=== PATIENT | male | born 1960 | race Caucasian/White ===

== ENCOUNTER → 2022-11-09 14:12 | Outpatient (CLI) | payer OTHER, SELFPAY ==
[2022-11-09 14:32] LABS: Microscopic, Urine URINE MICROSCOPIC (MICROSCOPIC)
[2022-11-09 15:40] LABS: Appearance,Urine CLEAR (Clear); Bilirubin,Urine Negative (Negative); Blood, Urine TRACE-I (Negative); Color,Urine YELLOW (Yellow); Glucose,Urine (UA) Negative (Negative); Ketones,Urine Negative (Negative); Leukocyte Esterase,Urine Negative (Negative); Nitrate,Urine Negative (Negative); PH,Urine 5.5 (5.0-8.5); Protein,Urine 1+ (Negative); Specific Gravity, Urine >= 1.030 (1.005-1.030); Urobilinogen,Urine 0.2 EU/dl (0.2)
[2022-11-09 15:47] LABS: Squamous Epithelial Cell,Urine Occasional #/hpf (0-5)
[2022-11-09 18:28] LABS: Prostate Specific Ag Screen 0.8 ng/ml (0.0-4.0)
== END ==
PROVIDERS: PCP Internal Medicine Adolescent Medicine; Visit Provider Nurse Practitioner Family
DX: I15.0 Renovascular hypertension (principal); I63.9 Cerebral infarction, unspecified; R56.9 Unspecified convulsions; E78.5 Hyperlipidemia, unspecified; Z12.5 Encounter for screening for malignant neoplasm of prostate
CPT/HCPCS: 36415; 81001; G0103

== ENCOUNTER → 2022-11-11 14:44 | Outpatient (CLI) | payer OTHER, SELFPAY ==
--- NOTE | 2022-11-11 14:44 | MR_ITS ---
FINAL REPORT TECHNIQUE: Multiplanar and multisequence imaging of the brain was obtained before and after contrast injection. CLINICAL HISTORY: seizure,cva. COMPARISON: None. FINDINGS: There is mild atrophy. No mass effect or midline shift. There are a few scattered nonspecific periventricular and subcortical foci of T2 abnormality. Encephalomalacia is present in the right occipital pole. Signal intensity within the brainstem and cerebellum is within normal limits. There is no restricted diffusion to suggest acute infarct. Signal intensity within the proximal spinal cord is normal. There is mucoperiosteal thickening of the bilateral maxillary sinuses. Post contrast images reveal no pathologic contrast enhancement. IMPRESSION: No acute intracranial abnormality and no pathologic contrast enhancement. Periventricular and subcortical T2 abnormality, likely related to changes of chronic small vessel ischemia. Right occipital encephalomalacia. Authenticated and [facility]
--- NOTE | 2022-11-11 15:11 | XR_ITS ---
FINAL REPORT CLINICAL HISTORY: METAL IN EYE, mri clearance FINDINGS: ORBITS Two views were obtained. No metallic foreign body is identified. The orbital rims are intact. IMPRESSION: No metallic foreign body. Reviewed, Interpreted and Dictated by Symone Fung MD Transcribed by Sneha Nino Authenticated and [facility]
[2022-11-11 15:46] LABS: Blood Urea Nitrogen 14 mg/dl (9-20); Estimated Glomerular Filt Rate 56 ml/min (>60); GFR (African American) 68 ML/MIN (>60)
== END ==
PROVIDERS: PCP Internal Medicine Adolescent Medicine; Visit Provider Specialist
DX: I63.9 Cerebral infarction, unspecified (principal); R56.9 Unspecified convulsions; H05.53 Retained (old) foreign body following penetrating wound of bilateral orbits
CPT/HCPCS: 36415; 70200; 70553; 82565; 84520; A9576

== ENCOUNTER → 2022-11-23 06:35 | Outpatient (CLI) | payer OTHER, SELFPAY ==
--- NOTE | 2022-11-23 06:36 | CA_ITS ---
FINAL REPORT TECHNIQUE: Grayscale, color Doppler and duplex Doppler ultrasound of the kidneys, aorta and renal arteries was performed. Multiple velocities were measured. CLINICAL HISTORY: HTN,HLD,SMOKER FINDINGS: Aorta velocity: 101 cm/sec Right kidney: 12.1 cm. No evidence of hydronephrosis or mass. Right intrarenal RI: 0.58 Right renal artery velocity: 189 cm/sec. Right RAR (Renal artery-Aortic Ratio): 2.1 Left Kidney: 10.4 cm. No evidence of hydronephrosis or mass. Left intrarenal RI: 0.61 Left renal artery velocity: 571 cm/sec. Left RAR (Renal Artery-Aortic Ratio): 5.7 IMPRESSION: Less than 60% stenosis of the right renal artery. Greater than 60% stenosis of the left renal artery. CT angiogram or postcontrast MR angiogram would be more sensitive for evaluation of possible renal artery stenosis. Reviewed, Interpreted and Dictated by Symone Fung MD Transcribed by Sneha Nino Authenticated and [facility]
--- NOTE | 2022-11-23 06:36 | US_ITS ---
FINAL REPORT TECHNIQUE: Ultrasound images of the kidneys and bladder were obtained. CLINICAL HISTORY: I63.9 - Cerebral infarction, unspecified FINDINGS: The right kidney measures 10.7 cm in length. It is normal in echogenicity. There is no hydronephrosis. The left kidney measures 9.3 cm in length. It is normal in echogenicity. There may be a tiny amount of left perinephric fluid. The spleen is unremarkable. IMPRESSION: May be a tiny amount of left perinephric fluid. Reviewed, Interpreted and Dictated by Symone Fung MD Transcribed by Sneha Nino Authenticated and [facility]
--- NOTE | 2022-11-23 06:36 | CA_ITS ---
APPROVED REPORT Exam: Pharmacologic Technologist: Grace Casper Ht: 6 ft 1 in Wt: 199 lbs BSA: 2.15 m2 HR: 50 bpm BP: 184/82 mmHg Indications: CVA, Renovascular, HTN, Bilat TIFFANI Medical History Medications: Lisinopril,,,,, Metoprolol,,,,, Asa,,,,, Vitamin B12,,,,, Atorvastatin,,,,, TAMSULOSIN,,,,, Levetiracetam,,,,, Sertraline,,,,, Stress Test Details Test: LEXISCAN HR Resting HR: 55 bpm Max Heart Rate (APMHR): 159.679235 bpm Max HR Achieved: 92 bpm Target HR (85% APMHR): 135.838356 bpm % of APMHR: 57.86 Recovery HR: 69 bpm BP Resting BP: 166.0/71.0 mmHg Max BP: 184.0/82.0 mmHg Recovery BP: 146.0/74.0 mmHg ECG Resting ECG: sinus bradycardia Clinical Exercise duration: 04:03 min Highest Stage Achieved: Exercise capacity: 1.0 METs Stress ECG Conclusion Symptoms: Mild shortness of air, stomach and head discomfort. No chest pain. Arrhythmias/Ectopy: None ST-T Changes: No significant changes. Conclusion: Unremarkable Lexiscan stress. Myoview images reported separately. Test Summary REST . . . . . . . Resting REST 05:19 . . 55 . 166/ 71 . . Stage 1 . . . . . . . Myoview Injected Stage 1 01:00 . . 85 . . . . Stage 2 01:00 . . 85 . 164/ 84 . . Stage 3 01:00 . . 80 . 172/ 80 . . Stage 4 01:00 . . 81 . 152/ 87 . . Stage 4 01:03 . . 80 . 152/ 87 . Stop exercise at 04:03 RECOVERY 01:00 . . 80 . . . . RECOVERY 02:00 . . 75 . 146/ 83 . . RECOVERY 03:00 . . 68 . 146/ 83 . . RECOVERY 03:44 . . 68 . 146/ 74 . . Electronically signed by : Toby Real MD 11/23/2022 17:31:09
--- NOTE | 2022-11-23 06:36 | CA_ITS ---
FINAL REPORT TECHNIQUE: Color Doppler, duplex Doppler and huerta scale sonography of the bilateral neck arterial vasculature was performed. Velocities were measured in the carotid arteries. Stenosis evaluation based on the validated velocity criteria. CLINICAL HISTORY: cva FINDINGS: The peak systolic velocity of the right common carotid artery is 78 cm/s. The peak systolic velocity of the right internal carotid artery is 102 cm/s and end diastolic velocity 25 cm/s. The ICA/CCA ratio is 1.3. A mild amount of plaque is present. The right external carotid artery is patent. The right vertebral artery is patent with antegrade flow. The peak systolic velocity of the left common carotid artery is 85 cm/s. The peak systolic velocity of the left internal carotid artery is 136 cm/s and end diastolic velocity 35 cm/s. The ICA/CCA ratio is 1.6. A mild amount of plaque is present. The left external carotid artery is patent.The left vertebral artery is patent with antegrade flow. IMPRESSION: Less than 50% bilateral carotid stenosis. Bilateral patent vertebral arteries with antegrade flow. If indicated, CTA or MRA could further evaluate. Reviewed, Interpreted and Dictated by Symone Fung MD Transcribed by Sarah Griffin Authenticated and [facility]
--- NOTE | 2022-11-23 06:36 | CA_ITS ---
APPROVED REPORT EXAM: Comprehensive 2D, Doppler, and color-flow Echocardiogram Medical Operations Supervisor: Sarita Payan RVT Ht: 6 ft 1 in Wt: 199lbs BSA: 2.15 BP: 190/86 mmHg Indications: HX CVA,HTN,SMOKER,HLD 2D Dimensions LVOT 2.47 cm (M/F) 1.5-2.5 LA Volume 30.10 mL LA Volume Index 14.00 mL/m2 (M/F) 16-34 M-Mode Dimensions RVDd 1.93 cm (0.9-2.6) LA Diam 3.83 cm (1.9-4.0) LVDd 4.30 cm (3.5-5.7) Ao Diam 3.51 cm (2.0-3.7) LVDs 3.21 cm (3.5-5.7) IVSd 0.88 cm (0.6-1.1) PWd 0.60 cm (0.6-1.1) EF (Teich) 50.30% FS 25.30% EDV (Teich) 83.10 mL TAPSE 2.96 (<1.7) ESV (Teich) 41.30 mL LV Diastology E Decel Time 303.00 (160-240 msec) E/A Ratio 0.7 MED E' 6.00 (< 7 cm/sec) E'/MED E' Ratio 9.63 (>14) LAT E' 7.60 (<10 cm/sec) E/LAT E' Ratio 7.61 (>14) Aortic Valve AO Peak GR. 2.70 mmHg Mitral Valve MV E Max Armando. 58.00 (40-130 cm/s) MV A Velocity 83.00 (40-130 cm/s) E/A Ratio 0.69 MV Decel. Time 303.00 (160-240 ms) MV PHT 89.00 ms Pulmonary Valve PV Peak Velocity 71.00 (50-150 cm/s) Left Ventricle Left atrium is mildly enlarged, left ventricle is normal size, mild concentric left ventricular hypertrophy. Estimated ejection fraction 55% with no regional wall motion abnormality, grade 1 diastolic dysfunction seen without tissue Doppler evidence of raise left atrial pressure. Right Ventricle Right atrium right ventricular mildly enlarged with normal contractility. Aortic Valve Aortic valve is minimally thickened and fibrosed there is no aortic stenosis or aortic insufficiency. Mitral Valve Mitral valve is grossly normal, there is trace mitral regurgitation. Tricuspid Valve Tricuspid grossly normal, there is trace tricuspid regurgitation, tricuspid regurgitation jet velocity is inadequate for calculation of the right ventricular systolic pressure. Pulmonic Valve Pulmonic valve is poorly visualized. Great Vessels Aortic root is normal size. Inferior vena cava is normal size with normal inspiratory collapse. Pericardium No significant pericardial effusion noted. Conclusion 1. Mild biatrial enlargement, normal left ventricular size, mild concentric left ventricular hypertrophy, estimated ejection fraction 55% with no regional wall motion abnormality, grade 1 diastolic dysfunction seen without tissue Doppler evidence of late left atrial pressure. 2. Mildly enlarged right ventricle with normal contractility. 3. Trace mitral and tricuspid regurgitation. 4. No significant pericardial effusion noted. 5. Inferior vena cava is normal size with normal inspiratory collapse. Electronically signed by : Toby Real MD 11/23/2022 18:54:31
--- NOTE | 2022-11-23 06:36 | NM_ITS ---
APPROVED REPORT Exam: Nuclear Stress Test Indication: HTN, High cholesterol, Tobacco use, Family history, CVA Patient Location: Outpatient Stress Tech: Grace Casper NM Tech:Diane Wagner, ARRT, RT (R)(N) Ht: 6 ft 1 in Wt: 195 lbs HR: 55 bpm BP: 166/71 mmHg BSA: 2.13 m2 TID: 1.10 BMI: 25.7 History: HTN, High cholesterol, Tobacco use, Family history, CVA Procedure: Patient received 0.4 mg of intravenous Lexiscan, resting heart rate 55 bpm, resting blood pressure 166/71 mmHg, with Lexiscan maximum heart rate achieved was 92 bpm which is Less than 85 % of the maximum predicted heart rate and blood pressure was 184/82 mmHg. With Lexiscan, patient denied any complaint of chest pain. Electrocardiogram Resting electrocardiogram shows sinus rhythm, with Lexiscan there is less than 1.[address] segment depression noted from the baseline EKG. The EKG portion of the Lexiscan is nondiagnostic. Cardiac Stress and Resting SPECT Images: Cardiac Stress and Resting SPECT images were obtained using technetium 99m Myoview 32.4 mCi stress and 10.58 mCi at rest. Gated SPECT analysis of segmental wall motion and calculation of the ejection fraction also done. Prone images were also obtained. Cardiac stress and rest SPECT images show reversible ischemia involving the inferior wall, computer derived ejection fraction is 48% with no regional wall motion abnormality, right ventricle is normal size and contractility. Conclusion: 1. The EKG portion of the Lexiscan is nondiagnostic. 2. Scintigraphic evidence of reversible ischemia involving the inferior wall, computer derived ejection fraction is 48% with no regional wall motion abnormality, right ventricle is normal size and contractility. 3. Abnormal Lexiscan Myoview study. Electronically signed by : Toby Real MD 11/23/2022 17:33:55
--- NOTE | 2022-11-23 08:40 | HMH.ITSHM ---
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 []TAMSULOSIN SERTRALINE METOPROLOL LISINOPRIL LEVETIRACETAM HCTZ VITAMIN B12 ATORVASTATIN ASA
== END ==
PROVIDERS: PCP Internal Medicine Adolescent Medicine; Visit Provider Nurse Practitioner Family
DX: I15.0 Renovascular hypertension (principal); E78.5 Hyperlipidemia, unspecified; I63.9 Cerebral infarction, unspecified; I65.23 Occlusion and stenosis of bilateral carotid arteries
CPT/HCPCS: 76770; 78452; 93017; 93306; 93880; 93976; A9502; J2785

== ENCOUNTER 2022-12-01 09:07 | Day surgery (SDC) | payer OTHER, SELFPAY ==
--- NOTE | 2022-12-01 07:08 | IR_ITS ---
APPROVED REPORT Patient Location: Outpatient PROCEDURES Right femoral retrograde angiogram Catheter placed on the right common iliac artery Right common iliac artery retrograde angiogram Bare-metal stent deployment to the right common iliac artery Left heart catheterization Left ventriculogram Selective coronary angiogram Drug-eluting stent deployment to the proximal dominant circumflex artery Drug-eluting stent deployment to the proximal LAD Bilateral selective renal angiography Bare-metal stent deployment to the left renal artery INDICATION Peripheral artery disease, Right common iliac artery atherosclerosis, Abnormal Myoview, Coronary artery disease, Complex high risk coronary artery disease, Abnormal renal duplex, Renal artery stenosis, Renovascular hypertension Informed consent was obtained prior to the procedure. COMPLICATIONS None Estimated Blood Loss: Less than 10 mls TECHNIQUE 1% lidocaine used anesthetize the right groin the right femoral artery was accessed via Salinger technique and a 4 Guatemalan sheath was placed in the right femoral artery. A JR4 catheter was used to negotiate through the right common iliac artery after the wire would not pass. Right retrograde femoral angiogram was performed via the sheath. The JR4 catheter was then advanced and retrograde angiography was performed which demonstrated a small aneurysm with extensive atherosclerotic plaque. An advantage wire was used to negotiate through the stenosis. The JR4 catheter was used to perform left heart catheterization left ventriculogram and selective coronary angiography as well as bilateral selective renal angiography. The right renal artery was not adequately visualized as the ostium would not opacify. At this point therapeutic heparin was administered and the 4 Guatemalan sheath was exchanged for a 7 Guatemalan sheath. Many exchange technique was performed. The guidewire was placed into the abdominal aorta and a 10 mm x 57 mm balloon mounted stent was deployed at 10 and then 15 romain reducing the severe stenosis to 0%. At this point the short BANDA catheter was placed in the left renal artery and a Choice PT extra-support wire was placed distally. A 6 mm x 15 mm Herculink stent was deployed at 15 and then 18 romain. This vessel was much larger than the stent therefore a 7 mm x 15 mm Herculink stent was placed distal to the first stent and then deployed at 20 romain. The balloon was brought back and deployed at 22 romain to post dilate and mesh the 2 stents. Excellent angiograph results were obtained at the end of the procedure with wide patency of a severely critically stenosed left renal artery. The guide catheter was then used to perform right renal angiography and opacify the ostium. Following this many exchange technique was performed and a JL4 catheter was used to perform left coronary artery angiography. A 6 Guatemalan JL 4 guide catheter was then placed in the left main artery and a Choice PT extra-support wire was placed on the circumflex artery where a 3.5 x 18 mm resolute Ekwok stent was deployed at 20 romain reducing the severe stenosis to 0%. In addition patient had a wraparound apex LAD and the inferior defect could have come from the LAD supplying the inferior wall. The proximal LAD had a cleft like/mushroom like lesion which produced a 50% stenosis. Based on patient's peripheral disease complex renal artery stenosis in this complex eccentric plaque this was a judgment call and I felt stenting would be appropriate based on patient's apparent accelerated atherosclerotic disease. Because of this a 3 mm x 12 mm resolute Matt stent was deployed at 22 romain reducing this high risk complex disease to 0%. ERIKA-3 flow was present before and after the
[2022-12-01 09:12] VITALS: BMI 26.5
[2022-12-01 09:24] VITALS: BMI 25.2
[2022-12-01 09:32] VITALS: BP 117/116; PULSE 55; PULSE 60; RESP 18; O2SAT 97
[2022-12-01 09:45] LABS: Basophils # 0.1 K/mm3 (0-0.2); Basophils % 0.8 % (0.1-2.0); Eosinophils # 0.5 K/mm3 (0.0-0.4); Eosinophils % 3.7 % (0.1-12.0); Lymphocytes # 2.3 K/mm3 (0.7-4.5); Lymphocytes % 18.5 % (10-50); Mean Corpuscular HGB Conc 31.8 g/dL (31.8-35.4); Mean Corpuscular Hemoglobin 32.2 pg (27.0-31.2); Mean Corpuscular Volume 101.2 fl (80-94); Mean Platelet Volume 8.4 fl (7.4-10.4); Monocytes # 0.7 K/mm3 (0.1-1.0); Monocytes % 5.6 % (1.7-9.3); Neutrophils # 8.9 K/mm3 (1.8-7.8); Neutrophils % 71.5 % (37.0-80.0); Platelet Count 319 K/mm3 (142-424); Red Blood Count 4.35 M/mm3 (4.60-6.20); Red Cell Distribution Width 15.1 % (11.5-17.5); White Blood Count 12.5 K/mm3 (4.8-10.8)
[2022-12-01 09:47] LABS: Chloride 103 mmol/L (98-107); Potassium 4.8 mmoL/L (3.5-5.1); Sodium 135 mmol/L (136-145)
[2022-12-01 09:50] LABS: Anion Gap 11.8 mEq/L (5-15); Blood Urea Nitrogen 14 mg/dl (9-20); Carbon Dioxide 25 mmol/L (22.0-30.0); Creatinine Clearance Estimated 84 mL/min (50-200); Estimated Glomerular Filt Rate 68 ml/min (>60); GFR (African American) 82 ML/MIN (>60); Glucose 95 mg/dl (74-100)
[2022-12-01 12:05] VITALS: BP 190/130; PULSE 54; RESP 18; O2SAT 98
[2022-12-01 12:10] VITALS: BP 171/92; PULSE 50; RESP 18; O2SAT 96
[2022-12-01 12:12] VITALS: BP 154/89; PULSE 54; PULSE 67; RESP 20; TEMP 36.6; O2SAT 97
[2022-12-01 12:15] VITALS: BP 171/96; PULSE 50; RESP 20; O2SAT 97
[2022-12-01 12:18] LABS: CATHL Activated Clotting Time 355 SEC (74-125)
[2022-12-01 12:28] VITALS: BP 160/93; PULSE 49; RESP 18; O2SAT 100
--- NOTE | 2022-12-01 13:58 | P.CONPHA_ITS ---
PHA Engineer Rf Deployment Discharge Med Regional Operations Director: Fazal Devlin has received discharge medication counseling on the following medications: -ASPIRIN (ON PREVIOUSLY, NO QUESTIONS) -BRILINTA (BLOOD THINNER, TWICE DAILY, BLEED/BRUISE RISK, BLEED LOCATION/APPEARANCE, BUMP HEAD = GO TO ER, SOB POSSIBLE) -ATORVASTATIN (ON PREVIOUSLY, NO QUESTIONS) -LISINOPRIL (ON PREVIOUSLY, NO QUESTIONS) -METOPROLOL (ON PREVIOUSLY, NO QUESTIONS) -NORVASC (FOR HIGH BLOOD PRESSURE, DAILY, DIZZINESS, LIGHTHEADEDNESS, HEADACHE, PERIPHERAL EDEMA POSSIBLE) PATIENT VERBALIZED NO QUESTIONS AT THIS TIME.
== END 2022-12-01 15:00 | disposition home or self-care (01) ==
LOC: CATHLAB 09:09
PROVIDERS: PCP Internal Medicine Adolescent Medicine; Visit Provider Internal Medicine
DX: I70.1 Atherosclerosis of renal artery (principal); I25.118 Atherosclerotic heart disease of native coronary artery with other forms of angina pectoris; R06.02 Shortness of breath; F17.210 Nicotine dependence, cigarettes, uncomplicated; E78.5 Hyperlipidemia, unspecified; I77.1 Stricture of artery; I15.0 Renovascular hypertension; I65.23 Occlusion and stenosis of bilateral carotid arteries; I25.84 Coronary atherosclerosis due to calcified coronary lesion; I69.398 Other sequelae of cerebral infarction; I69.312 Visuospatial deficit and spatial neglect following cerebral infarction; H53.8 Other visual disturbances; I70.213 Atherosclerosis of native arteries of extremities with intermittent claudication, bilateral legs; Z79.899 Other long term (current) drug therapy; R56.9 Unspecified convulsions; Z82.49 Family history of ischemic heart disease and other diseases of the circulatory system
CPT/HCPCS: 36245; 36252; 37221; 80048; 85025; 85347; 92928; 93458; 99152; 99153; C1725; C1760; C1769; C1876; C1887; C1894; C9600; J1644; J2405; Q9967

== ENCOUNTER → 2022-12-06 13:54 | Outpatient (CLI) | payer OTHER, SELFPAY ==
--- NOTE | 2022-12-06 14:14 | US_ITS ---
FINAL REPORT CLINICAL HISTORY: N23 - Unspecified renal colic COMPARISON: 11/23/2022 FINDINGS: RENAL ULTRASOUND Ultrasound images of the kidneys were obtained. Limited images of the liver parenchyma demonstrates normal echogenicity. The right kidney measures 10.9 cm in length. It is normal echogenicity. There is no hydronephrosis. The left kidney measures 10.3 cm in length. It is normal echogenicity. There is no hydronephrosis. There is a small amount of perinephric fluid which is a nonspecific finding. IMPRESSION: Small amount of the left perinephric fluid, similar to the prior exam, nonspecific. Reviewed, Interpreted and Dictated by Jeff Mccollum III, MD Transcribed by Denisse Shaver Authenticated and [facility]
[2022-12-06 15:26] LABS: Chloride 93 mmol/L (98-107); Potassium 3.9 mmoL/L (3.5-5.1); Sodium 131 mmol/L (136-145)
[2022-12-06 15:27] LABS: Basophils # 0.1 K/mm3 (0-0.2); Basophils % 0.6 % (0.1-2.0); Eosinophils # 0.8 K/mm3 (0.0-0.4); Eosinophils % 5.3 % (0.1-12.0); Hematocrit 41.1 % (42.0-52.0); Hemoglobin 13.6 g/dL (14.1-18.0); Lymphocytes # 1.8 K/mm3 (0.7-4.5); Lymphocytes % 12.1 % (10-50); Mean Corpuscular Hemoglobin 31.8 pg (27.0-31.2); Mean Corpuscular Volume 96.4 fl (80-94); Mean Platelet Volume 8.2 fl (7.4-10.4); Monocytes # 1.3 K/mm3 (0.1-1.0); Monocytes % 8.5 % (1.7-9.3); Neutrophils # 11.1 K/mm3 (1.8-7.8); Neutrophils % 73.6 % (37.0-80.0); Platelet Count 383 K/mm3 (142-424); Red Blood Count 4.26 M/mm3 (4.60-6.20); White Blood Count 15.1 K/mm3 (4.8-10.8)
[2022-12-06 15:29] LABS: Anion Gap 14.9 mEq/L (5-15); Blood Urea Nitrogen 21 mg/dl (9-20); Calcium 8.8 mg/dl (8.4-10.2); Carbon Dioxide 27 mmol/L (22.0-30.0); Estimated Glomerular Filt Rate 48 ml/min (>60); GFR (African American) 58 ML/MIN (>60); Glucose 93 mg/dl (74-100)
[2022-12-06 15:30] LABS: MANUAL DIFFERENTIAL MANUAL DIFFERENTIAL (MANUAL DIFF)
[2022-12-06 17:25] LABS: Eosinophils % 2 % (0-3); Lymphocytes % 14 % (10-50); Monocytes % 8 % (2-9); Neutrophils % 76 % (42-76); Total Cells Counted 100
[2022-12-06 17:26] LABS: Platelet Estimate Normal; RBC Morphology Normal
== END ==
PROVIDERS: PCP Internal Medicine Adolescent Medicine; Visit Provider Internal Medicine
DX: I25.10 Atherosclerotic heart disease of native coronary artery without angina pectoris (principal); I70.1 Atherosclerosis of renal artery; I73.9 Peripheral vascular disease, unspecified; N23 Unspecified renal colic; Z95.5 Presence of coronary angioplasty implant and graft; Z95.828 Presence of other vascular implants and grafts
CPT/HCPCS: 36415; 76770; 80048; 85007; 85025

== ENCOUNTER → 2022-12-07 14:17 | Outpatient (CLI) | payer OTHER, SELFPAY ==
--- NOTE | 2022-12-07 14:21 | CT_ITS ---
FINAL REPORT TECHNIQUE: Axial CT images of the abdomen were obtained without contrast. Coronal reformatted images were also obtained.This study was performed with techniques to keep radiation doses as low as reasonably achievable (ALARA). Individualized dose reduction techniques using automated exposure control or adjustment of mA and/or kV according to the patient''s size were employed. CLINICAL HISTORY: abdominal pain/left kidney pain FINDINGS: The lung bases are clear. The liver has an unremarkable appearance, without evidence of mass. The gallbladder is collapsed with mild wall thickening. There is no evidence of biliary ductal dilatation. The pancreas appears normal. There are low attenuation areas in the spleen of uncertain significance. A left renal artery stent is present. There is nonspecific left perinephric stranding. There is no evidence of renal stone or hydronephrosis. There is no evidence of adenopathy. There is ectasia of the abdominal aorta at 32 mm. There is a right common iliac artery stent. No abnormal fluid collection is seen. No localized inflammatory processes identified. The appendix is normal. IMPRESSION: Low-attenuation areas in the spleen of uncertain significance. Splenic infarcts cannot be excluded. Nonspecific left perinephric stranding. Reviewed, Interpreted and Dictated by Jeff Mccollum III, MD Transcribed by Martínez Cody Authenticated and [facility]
== END ==
PROVIDERS: PCP Internal Medicine Adolescent Medicine; Visit Provider Internal Medicine
DX: I70.1 Atherosclerosis of renal artery (principal); I15.0 Renovascular hypertension; N23 Unspecified renal colic; I25.10 Atherosclerotic heart disease of native coronary artery without angina pectoris; E78.5 Hyperlipidemia, unspecified; I73.9 Peripheral vascular disease, unspecified; Z95.5 Presence of coronary angioplasty implant and graft; Z95.828 Presence of other vascular implants and grafts
CPT/HCPCS: 74150

== ENCOUNTER → 2022-12-14 09:35 | Outpatient (CLI) | payer OTHER, SELFPAY ==
--- NOTE | 2022-12-14 09:35 | US_ITS ---
FINAL REPORT CLINICAL HISTORY: blood FINDINGS: US PELVIC LIMITED, BLADDER Limited sonographic images were obtained of the pelvis to evaluate the urinary bladder. The bladder demonstrates a volume of 99.5 mL. There is no abnormality of the bladder wall visualized. Bilateral ureteral jets are visualized. There is no postvoid residual. IMPRESSION: Unremarkable bladder ultrasound. Reviewed, Interpreted and Dictated by Warren Dubois MD Transcribed by Martínez Cody Authenticated and [facility]
[2022-12-14 10:29] LABS: Basophils # 0.1 K/mm3 (0-0.2); Basophils % 0.6 % (0.1-2.0); Eosinophils # 0.3 K/mm3 (0.0-0.4); Eosinophils % 2.1 % (0.1-12.0); Hemoglobin 13.2 g/dL (14.1-18.0); Lymphocytes # 1.9 K/mm3 (0.7-4.5); Lymphocytes % 14.6 % (10-50); Mean Corpuscular HGB Conc 32.1 g/dL (31.8-35.4); Mean Corpuscular Volume 96.4 fl (80-94); Mean Platelet Volume 7.1 fl (7.4-10.4); Monocytes # 0.7 K/mm3 (0.1-1.0); Monocytes % 5.4 % (1.7-9.3); Neutrophils # 9.8 K/mm3 (1.8-7.8); Neutrophils % 77.3 % (37.0-80.0); Platelet Count 470 K/mm3 (142-424); Red Blood Count 4.25 M/mm3 (4.60-6.20); Red Cell Distribution Width 13.3 % (11.5-17.5); White Blood Count 12.7 K/mm3 (4.8-10.8)
[2022-12-14 11:16] LABS: Anion Gap 14.9 mEq/L (5-15); Blood Urea Nitrogen 20 mg/dl (9-20); Calcium 8.6 mg/dl (8.4-10.2); Carbon Dioxide 20 mmol/L (22.0-30.0); Chloride 99 mmol/L (98-107); Estimated Glomerular Filt Rate 56 ml/min (>60); GFR (African American) 68 ML/MIN (>60); Glucose 98 mg/dl (74-100); Potassium 4.9 mmoL/L (3.5-5.1); Sodium 129 mmol/L (136-145)
== END ==
PROVIDERS: Surgery; PCP Internal Medicine Adolescent Medicine; Visit Provider Nurse Practitioner Family
DX: R31.9 Hematuria, unspecified (principal); D73.5 Infarction of spleen
CPT/HCPCS: 36415; 76857; 80048; 85025

== ENCOUNTER → 2022-12-22 07:43 | Outpatient (CLI) | payer OTHER, SELFPAY ==
--- NOTE | 2022-12-22 07:44 | CT_ITS ---
FINAL REPORT TECHNIQUE: After the administration of IV contrast, axial images through the abdomen was performed by computed tomography. Oral contrast was given. This study was performed with techniques to keep radiation doses as low as reasonably achievable (ALARA). Individualized dose reduction techniques using automated exposure control or adjustment of mA and/or kV according to the patient's size were employed. CLINICAL HISTORY: splenic protocal COMPARISON: 12/07/2022 FINDINGS: The liver parenchyma is homogeneous. No focal hepatic lesion is identified. The gallbladder is present. There are several wedge-shaped areas of hypodensity in the spleen consistent with a splenic infarcts. The splenic vein and artery are patent. No thrombus is identified. The adrenal glands and pancreas are normal. There continues to be asymmetric left perinephric stranding. There is wedge shaped hypodensity in the upper pole of the left kidney, could represent an infarct or focal pyelonephritis. Abdominal GI tract shows wall thickening of proximal small bowel loops, favor enteritis. There is no evidence of small-bowel obstruction. Left renal artery stent appears normal. There is a 3 cm abdominal aortic aneurysm. There is a large amount of stool in the included colon. There is no lymphadenopathy or ascites. No acute osseous abnormality is identified. IMPRESSION: Splenic infarcts. Renal infarct or focal pyelonephritis with associated left perinephric stranding. Consider follow up. Wall thickening of proximal small bowel loops, favor enteritis. Constipation. Reviewed, Interpreted and Dictated by Symone Fung MD Transcribed by Sneha Nino Authenticated and [facility]
== END ==
PROVIDERS: PCP Internal Medicine Adolescent Medicine; Visit Provider Surgery
DX: D73.5 Infarction of spleen (principal)
CPT/HCPCS: 74160; Q9967

== ENCOUNTER → 2023-08-31 09:13 | Outpatient (CLI) | payer OTHER, SELFPAY ==
[2023-08-31 10:00] LABS: Basophils # 0.1 K/mm3 (0-0.2); Basophils % 0.5 % (0.1-2.0); Eosinophils # 0.4 K/mm3 (0.0-0.4); Eosinophils % 2.7 % (0.1-12.0); Hematocrit 43.7 % (42.0-52.0); Hemoglobin 14.4 g/dL (14.1-18.0); Lymphocytes # 2.2 K/mm3 (0.7-4.5); Lymphocytes % 16.7 % (10-50); Mean Corpuscular HGB Conc 33.1 g/dL (31.8-35.4); Mean Corpuscular Hemoglobin 30.2 pg (27.0-31.2); Mean Corpuscular Volume 91.5 fl (80-94); Mean Platelet Volume 7.2 fl (7.4-10.4); Monocytes # 0.6 K/mm3 (0.1-1.0); Monocytes % 4.8 % (1.7-9.3); Neutrophils # 9.9 K/mm3 (1.8-7.8); Neutrophils % 75.2 % (37.0-80.0); Platelet Count 329 K/mm3 (142-424); Red Blood Count 4.78 M/mm3 (4.60-6.20); Red Cell Distribution Width 13.5 % (11.5-17.5); White Blood Count 13.1 K/mm3 (4.8-10.8)
[2023-08-31 11:25] LABS: Alanine Aminotransferase 22 U/L (12-78); Alkaline Phosphatase 91 U/L (38-126); Anion Gap 11.5 mEq/L (5-15); Aspartate Amino Transferase 26 U/L (17-59); Bilirubin,Direct 0.2 mg/dl (0.0-0.4); Bilirubin,Indirect 0.1 mg/dL (0.0-0.9); Bilirubin,Total 0.3 mg/dl (0.2-1.3); Bilirubin,Unconjugated 0.1 mg/dL (0.0-1.1); Blood Urea Nitrogen 15 mg/dl (9-20); Calcium 8.5 mg/dl (8.4-10.2); Carbon Dioxide 26 mmol/L (22.0-30.0); Chloride 102 mmol/L (98-107); Chol/HDL Ratio 5.5 (1-3.5); Cholesterol 115 mg/dl (140-200); Estimated Glomerular Filt Rate 56 ml/min (>60); GFR (African American) 68 ML/MIN (>60); Glucose 106 mg/dl (74-100); HDL Cholesterol 21 mg/dl (40-60); Potassium 4.5 mmoL/L (3.5-5.1); Sodium 135 mmol/L (136-145); Total Protein,Serum 7.8 g/dl (6.3-8.2); Triglycerides 74 mg/dl (30-150); VLDL Cholesterol 15 mg/dL (0-40)
[2023-08-31 11:38] LABS: Direct LDL Cholesterol 77.55 mg/dL (100-129)
[2023-08-31 11:46] LABS: Free T4 (Free Thyroxine) 0.87 ng/dl (0.78-2.19)
[2023-08-31 11:56] LABS: Thyroid Stimulating Hormone 2.36 uIU/mL (0.465-4.68)
== END ==
PROVIDERS: PCP Internal Medicine Adolescent Medicine; Visit Provider Nurse Practitioner Family
DX: E78.5 Hyperlipidemia, unspecified (principal); I11.9 Hypertensive heart disease without heart failure; I25.10 Atherosclerotic heart disease of native coronary artery without angina pectoris; Z86.73 Personal history of transient ischemic attack (TIA), and cerebral infarction without residual deficits; I70.1 Atherosclerosis of renal artery; I73.9 Peripheral vascular disease, unspecified; R06.00 Dyspnea, unspecified; Z95.5 Presence of coronary angioplasty implant and graft; Z95.828 Presence of other vascular implants and grafts; Z72.0 Tobacco use
CPT/HCPCS: 36415; 80048; 80061; 80076; 84439; 84443; 85025